=== PATIENT | female | born 1950 | race African-American/Black ===

== ENCOUNTER 2019-09-17 15:36 | Emergency (ER) | payer MEDICARE, OTHER ==
[~2019-09-17] VITALS: Ht 162.6 cm; Wt 80.3 kg
--- NOTE | 2019-09-17 15:58 | NUR ---
pt bib ra for intermitten chest pain 03/04. [id number]. currently, patient does not endorse and chest pain. no sob. not in any distress. will continue to monitor
[2019-09-17] MEDS ORDERED: ALPRAZOLAM 0.5 MG TABLET PO ONE (16:00)
[2019-09-17] MEDS ORDERED: IBUPROFEN 600 MG TABLET PO ONE ×2 (16:00→16:08)
[2019-09-17] MEDS ORDERED: ALPRAZOLAM 0.5 MG TABLET ONE (16:08)
[2019-09-17 17:00] VITALS: BP 144/86
--- NOTE | 2019-09-17 17:00 | NUR ---
Patient discharged to home in stable condition. Written and verbal after care instructions given. Patient verbalizes understanding of instruction.
== END 2019-09-17 17:01 | disposition home or self-care (01) ==
LOC: ER 15:44
DX: R07.89 Other chest pain (principal); F41.9 Anxiety disorder, unspecified; I11.0 Hypertensive heart disease with heart failure; I50.9 Heart failure, unspecified
CPT/HCPCS: 36415; 84484-TC

== ENCOUNTER 2023-04-01 10:25 | Inpatient (IN) | payer MEDICARE, OTHER ==
[~2023-04-01] VITALS: Ht 162.6 cm; Wt 68.0 kg
[2023-04-01 11:20] LABS: CALCIUM, SERUM 9.4 mg/dL (8.5-10.1); CARBON DIOXIDE 27 mmol/L (21-32); CHLORIDE 104 mmol/L (98-107); CREATININE 0.8 mg/dL (0.6-1.3); GLUCOSE 163 mg/dL (74-106); POTASSIUM 3.4 mmol/L (3.5-5.1); SODIUM SERUM 141 mmol/L (136-145); UREA NITROGEN, BLOOD 16 mg/dL (7-18)
[2023-04-01 11:32] LABS: ALANINE AMINOTRANSFERASE 30 U/L (12-78); ALBUMIN 3.9 g/dL (3.4-5.0); ALKALINE PHOSPHATASE 107 U/L (46-116); ASPARTATE AMINOTRANSFERASE 23 U/L (15-37); BILIRUBIN,DIRECT 0.1 mg/dL (0.0-0.2); BILIRUBIN,TOTAL 0.6 mg/dL (0.2-1.0); TOTAL PROTEIN, SERUM 7.9 g/dL (6.4-8.2)
[2023-04-01 11:43] LABS: BASOPHILS % (AUTO) 0.8 % (0.0-2.0); EOSINOPHILS % (AUTO) 0.4 % (0.0-6.0); HEMATOCRIT 37 % (33-45); LYMPHOCYTES # (AUTO) 1.8 K/uL (0.8-4.8); LYMPHOCYTES % (AUTO) 34.5 % (20.0-44.0); MEAN CORPUSCULAR HGB CONC 32 g/dl (31.0-36.0); MEAN CORPUSCULAR VOLUME 82 fL (82-100); MONOCYTES # (AUTO) 0.5 K/uL (0.1-1.30); MONOCYTES % (AUTO) 8.8 % (2.0-12.0); NEUTROPHILS # (AUTO) 2.9 K/uL (1.8-8.9); NEUTROPHILS % (AUTO) 55.5 % (43.0-81.0); PLATELET COUNT (AUTO) 194 K/uL (150-450); RED BLOOD CELL COUNT(AUTO) 4.58 MIL/uL (4.0-5.2); WHITE BLOOD COUNT (AUTO) 5.3 K/uL (4.3-11.0)
[2023-04-01] MEDS ORDERED: ONDANSETRON HCL/PF 4 MG/2 ML VIAL IVP PRN (13:30)
[2023-04-01] MEDS ORDERED: MAG HYDROX/AL HYDROX/SIMETH 30 ML UDC PO PRN (13:30)
[2023-04-01] MEDS ORDERED: MAGNESIUM HYDROXIDE 30 ML UDC PO PRN (13:30)
[2023-04-01] MEDS ORDERED: ACETAMINOPHEN 325 MG TABLET PO PRN (13:30)
[2023-04-01] MEDS ORDERED: MORPHINE SULFATE INJ 2 MG/ML DISP.SYRIN IV PRN (13:30)
[2023-04-01 16:00] VITALS: BP 111/61
[2023-04-01 20:00] VITALS: BP 118/59
[2023-04-02] VITALS: BP 114/66
[2023-04-02 04:00] VITALS: BP 121/64
[2023-04-02 07:24] LABS: BASOPHILS % (AUTO) 0.5 % (0.0-2.0); EOSINOPHILS % (AUTO) 0.8 % (0.0-6.0); HEMATOCRIT 37 % (33-45); HEMOGLOBIN 11.9 g/dL (11.5-14.8); LYMPHOCYTES # (AUTO) 1.8 K/uL (0.8-4.8); LYMPHOCYTES % (AUTO) 36.4 % (20.0-44.0); MEAN CORPUSCULAR HGB CONC 32 g/dl (31.0-36.0); MEAN CORPUSCULAR VOLUME 83 fL (82-100); MONOCYTES # (AUTO) 0.4 K/uL (0.1-1.30); MONOCYTES % (AUTO) 8.8 % (2.0-12.0); NEUTROPHILS # (AUTO) 2.7 K/uL (1.8-8.9); NEUTROPHILS % (AUTO) 53.5 % (43.0-81.0); PLATELET COUNT (AUTO) 187 K/uL (150-450); RED BLOOD CELL COUNT(AUTO) 4.48 MIL/uL (4.0-5.2)
[2023-04-02 07:44] LABS: CALCIUM, SERUM 9.2 mg/dL (8.5-10.1); CARBON DIOXIDE 28 mmol/L (21-32); CHLORIDE 103 mmol/L (98-107); CREATININE 0.8 mg/dL (0.6-1.3); GLUCOSE 110 mg/dL (74-106); MAGNESIUM 2.1 mg/dL (1.8-2.4); POTASSIUM 3.3 mmol/L (3.5-5.1); SODIUM SERUM 142 mmol/L (136-145); UREA NITROGEN, BLOOD 13 mg/dL (7-18)
[2023-04-02 08:00] VITALS: BP 120/66
[2023-04-02] MEDS: ASPIRIN 81 MG TAB.CHEW PO SCH (09:54)
[2023-04-02] MEDS: ATORVASTATIN 10 MG TABLET PO SCH (09:54)
[2023-04-02] MEDS: ENOXAPARIN SODIUM 40 MG/0.4 ML DISP.SYRIN SQ SCH (09:55)
[2023-04-02] MEDS: METOPROLOL TARTRATE 25 MG TABLET PO SCH ×2 (09:55→20:55)
[2023-04-02] MEDS ORDERED: POTASSIUM CHLORIDE 20 MEQ TAB.PRT.SR PO SCH (10:00)
[2023-04-02 11:35] LABS: THYROID STIMULATING HORMONE 1.192 uIU/mL (0.358-3.74)
[2023-04-02 12:00] VITALS: BP 131/66
[2023-04-02] MEDS ORDERED: NIFE60TA73 PO (14:01)
[2023-04-02] MEDS ORDERED: CARV25TA2 PO (14:01)
[2023-04-02] MEDS ORDERED: ANAS1TAB50 PO (14:01)
[2023-04-02] MEDS ORDERED: LOSA100T31 PO (14:01)
[2023-04-02] MEDS ORDERED: HYDR-4077 PO (14:01)
[2023-04-02] MEDS ORDERED: ATOR10TA PO (14:01)
[2023-04-02] MEDS ORDERED: ISOS30TA86 PO (14:01)
[2023-04-02] MEDS ORDERED: LATA2.5D15 EACHEYE (14:01)
[2023-04-02] MEDS ORDERED: FURO40TA5 PO (14:01)
[2023-04-02] MEDS ORDERED: BRIM5DRO5 EACHEYE (14:01)
[2023-04-02] MEDS ORDERED: IOHEXOL-350 100 ML VIAL IV ONE (15:52)
[2023-04-02] MEDS ORDERED: IV NS 0.9% 250 ML IV ONE (15:52)
[2023-04-02 16:00] VITALS: BP 134/67
[2023-04-02] MEDS ORDERED: METOPROLOL TARTRATE INJ 5 MG/5 ML AMPUL ONE ×2 (16:00→16:17)
[2023-04-02] MEDS: METOPROLOL TARTRATE INJ 5 MG/5 ML AMPUL IVP PRN ×2 (16:00→16:05)
[2023-04-02] MEDS ORDERED: NITROGLYCERIN 0.4 MG/TAB BOTTLE ONE (16:00)
[2023-04-02] MEDS ORDERED: NITROGLYCERIN 0.4 MG/TAB BOTTLE SL ONE (16:00)
[2023-04-02 20:00] VITALS: BP 115/53
[2023-04-03] VITALS: BP 125/59
[2023-04-03 04:00] VITALS: BP 131/65
[2023-04-03 07:16] LABS: BASOPHILS % (AUTO) 0.5 % (0.0-2.0); EOSINOPHILS % (AUTO) 0.8 % (0.0-6.0); HEMATOCRIT 34 % (33-45); HEMOGLOBIN 11.1 g/dL (11.5-14.8); LYMPHOCYTES # (AUTO) 1.6 K/uL (0.8-4.8); LYMPHOCYTES % (AUTO) 31.7 % (20.0-44.0); MEAN CORPUSCULAR HGB CONC 32 g/dl (31.0-36.0); MEAN CORPUSCULAR VOLUME 81 fL (82-100); MONOCYTES # (AUTO) 0.5 K/uL (0.1-1.30); MONOCYTES % (AUTO) 10.2 % (2.0-12.0); NEUTROPHILS # (AUTO) 2.9 K/uL (1.8-8.9); NEUTROPHILS % (AUTO) 56.8 % (43.0-81.0); PLATELET COUNT (AUTO) 173 K/uL (150-450); WHITE BLOOD COUNT (AUTO) 5.2 K/uL (4.3-11.0)
[2023-04-03 07:41] LABS: ALANINE AMINOTRANSFERASE 32 U/L (12-78); ALBUMIN 3.3 g/dL (3.4-5.0); ALKALINE PHOSPHATASE 97 U/L (46-116); ASPARTATE AMINOTRANSFERASE 18 U/L (15-37); BILIRUBIN,TOTAL 0.4 mg/dL (0.2-1.0); CALCIUM, SERUM 9.1 mg/dL (8.5-10.1); CARBON DIOXIDE 28 mmol/L (21-32); CHLORIDE 106 mmol/L (98-107); CREATININE 0.8 mg/dL (0.6-1.3); GLUCOSE 104 mg/dL (74-106); MAGNESIUM 2.2 mg/dL (1.8-2.4); PHOSPHORUS 4.3 mg/dL (2.5-4.9); POTASSIUM 3.8 mmol/L (3.5-5.1); SODIUM SERUM 140 mmol/L (136-145); TOTAL PROTEIN, SERUM 6.9 g/dL (6.4-8.2); UREA NITROGEN, BLOOD 12 mg/dL (7-18)
[2023-04-03 08:00] VITALS: BP 142/58
[2023-04-03] MEDS: ASPIRIN 81 MG TAB.CHEW PO SCH (08:09)
[2023-04-03] MEDS: ATORVASTATIN 10 MG TABLET PO SCH (08:10)
[2023-04-03] MEDS: ENOXAPARIN SODIUM 40 MG/0.4 ML DISP.SYRIN SQ SCH (08:11)
[2023-04-03] MEDS: METOPROLOL TARTRATE 25 MG TABLET PO SCH (08:39)
[2023-04-03 12:00] VITALS: BP 142/58
== END 2023-04-03 12:50 | disposition home or self-care (01) | DRG 311 ==
LOC: ER 10:28 → TELE1 12:53
PROVIDERS: ADMIT Internal Medicine; ATTEND Internal Medicine
PROC: 05HC33Z Insertion of Infusion Device into Left Basilic Vein, Percutaneous Approach (ICD-10-PCS; principal; 2023-04-02)
DX: I20.9 Angina pectoris, unspecified (principal); I11.0 Hypertensive heart disease with heart failure; I50.9 Heart failure, unspecified; E11.9 Type 2 diabetes mellitus without complications; E87.6 Hypokalemia; Z20.822 Contact with and (suspected) exposure to COVID-19
CPT/HCPCS: 36415; 71045-TC; 75574; 80048-TC; 80053-TC; 80061-TC; 80076-TC; 83735-TC; 84100-TC; 84439-TC; 84443-TC; 84484-TC; 85025-TC; 87081-TC; 93307-TC; C9803; G0378; J1650; J3490; J7050; Q9967

== ENCOUNTER 2023-06-23 11:41 | Emergency (ER) | payer OTHER ==
[~2023-06-23] VITALS: Ht 162.6 cm; Wt 68.0 kg
[~2023-06-23 11:41] MED LIST: ANAS1TAB50 PO; ATOR10TA PO; BRIM5DRO5 EACHEYE; CARV25TA2 PO; FURO40TA5 PO; HYDR-4077 PO; ISOS30TA86 PO; LATA2.5D15 EACHEYE; LOSA100T31 PO; NIFE60TA73 PO
--- NOTE | 2023-06-23 11:45 | NUR ---
BIB C/O HAVING LOW BLOOD PRESSURE AND FEELING DIZZY SINCE THIS MORNING.
--- NOTE | 2023-06-23 12:10 | NUR ---
AT BEDSIDE FOR EVAL
--- NOTE | 2023-06-23 12:25 | NUR ---
[employer] AT BEDSIDE
[2023-06-23 12:45] LABS: BASOPHILS % (AUTO) 0.4 % (0.0-2.0); EOSINOPHILS % (AUTO) 0.6 % (0.0-6.0); HEMATOCRIT 37 % (33-45); HEMOGLOBIN 11.9 g/dL (11.5-14.8); LYMPHOCYTES % (AUTO) 30.3 % (20.0-44.0); MEAN CORPUSCULAR HGB CONC 32 g/dl (31.0-36.0); MEAN CORPUSCULAR VOLUME 82 fL (82-100); MONOCYTES # (AUTO) 0.6 K/uL (0.1-1.30); MONOCYTES % (AUTO) 8.7 % (2.0-12.0); NEUTROPHILS # (AUTO) 3.9 K/uL (1.8-8.9); PLATELET COUNT (AUTO) 150 K/uL (150-450); RED BLOOD CELL COUNT(AUTO) 4.51 MIL/uL (4.0-5.2); WHITE BLOOD COUNT (AUTO) 6.5 K/uL (4.3-11.0)
--- NOTE | 2023-06-23 12:50 | NUR ---
PATIENT TAKEN TO CT VIA [facility]
[2023-06-23 13:02] LABS: ALANINE AMINOTRANSFERASE 21 U/L (12-78); ALBUMIN 3.6 g/dL (3.4-5.0); ALKALINE PHOSPHATASE 96 U/L (46-116); ASPARTATE AMINOTRANSFERASE 13 U/L (15-37); BILIRUBIN,DIRECT 0.1 mg/dL (0.0-0.2); BILIRUBIN,TOTAL 0.5 mg/dL (0.2-1.0); CALCIUM, SERUM 9.6 mg/dL (8.5-10.1); CARBON DIOXIDE 25 mmol/L (21-32); CHLORIDE 105 mmol/L (98-107); CREATININE 0.9 mg/dL (0.6-1.3); GLUCOSE 111 mg/dL (74-106); POTASSIUM 3.1 mmol/L (3.5-5.1); SODIUM SERUM 141 mmol/L (136-145); UREA NITROGEN, BLOOD 15 mg/dL (7-18)
[2023-06-23] MEDS ORDERED: MECLIZINE HCL 12.5 MG TABLET ONE (13:07)
[2023-06-23] MEDS: MECLIZINE HCL 12.5 MG TABLET PO ONE (13:10)
[2023-06-23] MEDS ORDERED: MECL-159 PO (13:57)
--- NOTE | 2023-06-23 14:16 | NUR ---
Patient discharged to home in stable condition. Written and verbal after care instructions given. Patient verbalizes understanding of instruction.
[2023-06-23 14:17] VITALS: BP 106/67; TEMP 98.8; O2SAT 98
== END 2023-06-23 14:16 | disposition home or self-care (01) ==
LOC: ER 11:49
DX: R42 Dizziness and giddiness (principal); I11.0 Hypertensive heart disease with heart failure; I50.9 Heart failure, unspecified; Z79.899 Other long term (current) drug therapy
CPT/HCPCS: 99285; 70450; 71045; 93005 ×2; 85025; 80048; 80076; 36415; 84484; 83880; 82962; J8597

== ENCOUNTER 2024-05-14 16:04 | Inpatient (IN) | payer MEDICARE, OTHER ==
[~2024-05-14] VITALS: Ht 165.1 cm; Wt 80.7 kg
[~2024-05-14 16:04] MED LIST changes: +MECL-159 PO
[2024-05-14] MEDS ORDERED: ONDANSETRON HCL/PF 4 MG/2 ML VIAL ONE (16:38)
[2024-05-14 16:39] LABS: BASOPHILS # (AUTO) 0.1 K/uL (0.0-0.2); BASOPHILS % (AUTO) 0.6 % (0.0-2.0); EOSINOPHILS # (AUTO) 0.1 K/uL (0.0-0.7); EOSINOPHILS % (AUTO) 0.8 % (0.0-6.0); HEMATOCRIT 36 % (33-45); HEMOGLOBIN 12.2 g/dL (11.5-14.8); LYMPHOCYTES # (AUTO) 2.4 K/uL (0.8-4.8); MEAN CORPUSCULAR HEMOGLOBIN 28 PG (26.0-33.0); MEAN CORPUSCULAR HGB CONC 34 g/dl (31.0-36.0); MEAN CORPUSCULAR VOLUME 82 fL (82-100); MONOCYTES # (AUTO) 0.7 K/uL (0.1-1.30); MONOCYTES % (AUTO) 8.6 % (2.0-12.0); NEUTROPHILS # (AUTO) 5.1 K/uL (1.8-8.9); PLATELET COUNT (AUTO) 175 K/uL (150-450); RED BLOOD CELL COUNT(AUTO) 4.44 MIL/uL (4.0-5.2); RED CELL DISTRIBUTION WIDTH 17.2 % (11.5-15.0); WHITE BLOOD COUNT (AUTO) 8.4 K/uL (4.3-11.0)
[2024-05-14] MEDS ORDERED: MORPHINE SULFATE INJ 4 MG/ML DISP.SYRIN ONE (16:39)
[2024-05-14] MEDS: ONDANSETRON HCL/PF 4 MG/2 ML VIAL IVP ONE (16:43)
[2024-05-14] MEDS: ASPIRIN 81 MG TAB.CHEW PO ONE (16:43)
[2024-05-14] MEDS: MORPHINE SULFATE INJ 2 MG/ML DISP.SYRIN IV ONE (16:43)
[2024-05-14] MEDS ORDERED: ASPIRIN 81 MG TAB.CHEW ONE (16:43)
[2024-05-14 17:00] LABS: CALCIUM, SERUM 10.1 mg/dL (8.5-10.1); CARBON DIOXIDE 29 mmol/L (21-32); CHLORIDE 101 mmol/L (98-107); CREATININE 0.8 mg/dL (0.6-1.3); GLUCOSE 109 mg/dL (74-106); POTASSIUM 3.4 mmol/L (3.5-5.1); SODIUM SERUM 143 mmol/L (136-145); UREA NITROGEN, BLOOD 14 mg/dL (7-18)
[2024-05-14] MEDS ORDERED: CALC-17 PO (17:39)
[2024-05-14] MEDS ORDERED: MECLIZINE HCL 25 MG TABLET PO PRN (22:30)
[2024-05-14] MEDS ORDERED: MAGNESIUM HYDROXIDE 30 ML UDC PO PRN (22:30)
[2024-05-14] MEDS ORDERED: Z GUARD REMEDY 4 OZ OINT TP PRN (22:30)
[2024-05-14] MEDS ORDERED: ONDANSETRON HCL/PF 4 MG/2 ML VIAL IVP PRN (22:30)
[2024-05-14] MEDS ORDERED: MAG HYDROX/AL HYDROX/SIMETH 30 ML UDC PO PRN (22:30)
[2024-05-14] MEDS ORDERED: ZOLPIDEM TARTRATE 5 MG TABLET PO PRN (22:30)
[2024-05-15] VITALS: BP 123/71; TEMP 97.9; O2SAT 99
[2024-05-15] MEDS ORDERED: DEXTROSE 50%-WATER 50 ML DISP.SYRIN IV PRN
[2024-05-15] MEDS ORDERED: *INSULIN REGULAR(HUMULIN R)HUM 100 UNIT/ML VIAL SQ PRN
[2024-05-15 04:00] VITALS: BP 121/61; TEMP 97.9; O2SAT 99
[2024-05-15] MEDS: ACETAMINOPHEN 325 MG TABLET PO PRN (06:14)
[2024-05-15 06:56] LABS: BASOPHILS % (AUTO) 0.3 % (0.0-2.0); EOSINOPHILS # (AUTO) 0.1 K/uL (0.0-0.7); EOSINOPHILS % (AUTO) 0.9 % (0.0-6.0); HEMATOCRIT 38 % (33-45); HEMOGLOBIN 12.6 g/dL (11.5-14.8); LYMPHOCYTES # (AUTO) 2.4 K/uL (0.8-4.8); LYMPHOCYTES % (AUTO) 36.7 % (20.0-44.0); MEAN CORPUSCULAR HEMOGLOBIN 27 PG (26.0-33.0); MEAN CORPUSCULAR HGB CONC 33 g/dl (31.0-36.0); MEAN CORPUSCULAR VOLUME 83 fL (82-100); MONOCYTES # (AUTO) 0.6 K/uL (0.1-1.30); MONOCYTES % (AUTO) 9.6 % (2.0-12.0); NEUTROPHILS # (AUTO) 3.4 K/uL (1.8-8.9); NEUTROPHILS % (AUTO) 52.5 % (43.0-81.0); PLATELET COUNT (AUTO) 157 K/uL (150-450); RED BLOOD CELL COUNT(AUTO) 4.62 MIL/uL (4.0-5.2); WHITE BLOOD COUNT (AUTO) 6.5 K/uL (4.3-11.0)
[2024-05-15 07:19] LABS: CREATININE 0.7 mg/dL (0.6-1.3); MAGNESIUM 2.3 mg/dL (1.8-2.4); PHOSPHORUS 4.4 mg/dL (2.5-4.9); POTASSIUM 3.8 mmol/L (3.5-5.1)
[2024-05-15 07:39] LABS: THYROID STIMULATING HORMONE 2.57 uIU/mL (0.358-3.74)
[2024-05-15 08:00] VITALS: BP 139/66; TEMP 97.7; O2SAT 96
[2024-05-15] MEDS: BLOOD SUGAR DIAGNOSTIC 1 EACH STRIP VI SCH (08:38)
[2024-05-15] MEDS: PANTOPRAZOLE 40 MG TABLET.DR PO SCH (08:40)
[2024-05-15] MEDS: INSULIN REGULAR, HUMAN 100 UNIT/ML 3 ML VIAL SQ PRN (08:42)
[2024-05-15] MEDS: LOSARTAN POTASSIUM 50 MG TABLET PO SCH (09:07)
[2024-05-15] MEDS: ANASTROZOLE 1 MG TABLET PO SCH (09:07)
[2024-05-15] MEDS: BRIMONIDINE TARTRATE OPHT SOLN 5 ML BOTTLE EACHEYE SCH (09:07)
[2024-05-15] MEDS: ENOXAPARIN SODIUM 40 MG/0.4 ML DISP.SYRIN SQ SCH (09:08)
[2024-05-15] MEDS: CARVEDILOL 12.5 MG TABLET PO SCH (09:11)
[2024-05-15] MEDS: hydrALAZINE HCL 50 MG TABLET PO SCH (09:11)
[2024-05-15] MEDS: NIFEDIPINE XL 60 MG TAB.ER.24 PO SCH (09:11)
[2024-05-15] MEDS: FUROSEMIDE 40 MG TABLET PO SCH (09:11)
[2024-05-15] MEDS: CALCIUM CARB 250MG /VITAMIN D 1 UDTAB PO SCH (09:12)
[2024-05-15] MEDS: ISOSORBIDE MONONITRATE (30MG) 30 MG TAB.SR.24H PO SCH (09:12)
[2024-05-15] MEDS: ATORVASTATIN 10 MG TABLET PO SCH (09:12)
[2024-05-15] MEDS: ASPIRIN 81 MG TAB.CHEW PO SCH (09:13)
[2024-05-15 12:09] VITALS: BP 115/65; TEMP 98.8; O2SAT 95
[2024-05-15 16:00] VITALS: BP 116/63; TEMP 98.1; O2SAT 95
[2024-05-15 20:00] VITALS: BP 104/63; TEMP 98.1; O2SAT 100
[2024-05-15] MEDS: LATANOPROST EYE DROP 0.005% 2.5 ML BOTTLE EACHEYE SCH (21:40)
[2024-05-16] VITALS: BP 121/85; TEMP 97.7; O2SAT 100
[2024-05-16 04:00] VITALS: BP 123/64; TEMP 97.9; O2SAT 100
[2024-05-16 08:00] VITALS: BP 130/72; TEMP 97.5; O2SAT 100
[2024-05-16] MEDS ORDERED: SPIR50TA5 PO (10:54)
[2024-05-16] MEDS ORDERED: EMPA10TA PO (10:54)
[2024-05-16] MEDS ORDERED: SACU1TAB PO (10:54)
[2024-05-16 12:00] VITALS: BP 126/72; TEMP 97.5; O2SAT 100
[2024-05-16 12:02] VITALS: BP 126/72
== END 2024-05-16 13:02 | disposition home or self-care (01) | DRG 302 ==
LOC: ER 16:07 → TELE1 20:30
PROVIDERS: ADMIT Student in an Organized Health Care Education/Training Program; ATTEND Nurse Practitioner Acute Care
DX: I25.10 Atherosclerotic heart disease of native coronary artery without angina pectoris (principal); I50.23 Acute on chronic systolic (congestive) heart failure; I11.0 Hypertensive heart disease with heart failure; E78.5 Hyperlipidemia, unspecified; Z85.3 Personal history of malignant neoplasm of breast; E11.9 Type 2 diabetes mellitus without complications; Z79.82 Long term (current) use of aspirin
CPT/HCPCS: 36415; 71045-TC; 80048-TC; 80061-TC; 82962-TC; 83735-TC; 83880; 84100-TC; 84443-TC; 84484-TC; 85025-TC; 85378-TC; 93307-TC; G0378; J1650; J1815; J2270; J2405

== ENCOUNTER 2025-01-08 11:18 | Emergency (ER) | payer MEDICARE ==
[~2025-01-08] VITALS: Ht 162.6 cm; Wt 83.9 kg
[~2025-01-08 11:18] MED LIST changes: +CALC-17 PO; +EMPA10TA PO; -FURO40TA5 PO; -LOSA100T31 PO; -NIFE60TA73 PO; +SACU1TAB PO; +SPIR50TA5 PO
[2025-01-08 11:23] VITALS: TEMP 98.6
[2025-01-08 12:15] LABS: CALCIUM, SERUM 9.2 mg/dL (8.5-10.1); CREATININE 0.8 mg/dL (0.6-1.3); POTASSIUM 3.7 mmol/L (3.5-5.1)
[2025-01-08 12:18] LABS: BASOPHILS % (AUTO) 0.3 % (0.0-2.0); EOSINOPHILS % (AUTO) 0.5 % (0.0-6.0); HEMATOCRIT 36 % (33-45); HEMOGLOBIN 11.4 g/dL (11.5-14.8); LYMPHOCYTES # (AUTO) 1.2 K/uL (0.8-4.8); LYMPHOCYTES % (AUTO) 18.3 % (20.0-44.0); MEAN CORPUSCULAR HEMOGLOBIN 28 PG (26.0-33.0); MEAN CORPUSCULAR HGB CONC 32 g/dl (31.0-36.0); MEAN CORPUSCULAR VOLUME 90 fL (82-100); MONOCYTES # (AUTO) 0.5 K/uL (0.1-1.30); MONOCYTES % (AUTO) 7.2 % (2.0-12.0); NEUTROPHILS # (AUTO) 4.8 K/uL (1.8-8.9); NEUTROPHILS % (AUTO) 73.7 % (43.0-81.0); PLATELET COUNT (AUTO) 138 K/uL (150-450); RED BLOOD CELL COUNT(AUTO) 4.02 MIL/uL (4.0-5.2); RED CELL DISTRIBUTION WIDTH 15.7 % (11.5-15.0); WHITE BLOOD COUNT (AUTO) 6.5 K/uL (4.3-11.0)
[2025-01-08 12:21] LABS: ALBUMIN 3.9 g/dL (3.4-5.0); BILIRUBIN,DIRECT 0.3 mg/dL (0.0-0.2); BILIRUBIN,TOTAL 1.2 mg/dL (0.2-1.0); TOTAL PROTEIN, SERUM 7.4 g/dL (6.4-8.2)
[2025-01-08 12:49] LABS: APPEARANCE,URINE CLEAR (CLEAR); BILIRUBIN,URINE NEGATIVE (NEGATIVE); BLOOD, URINE NEGATIVE Ery/uL (NEGATIVE); COLOR,URINE YELLOW (YELLOW); KETONES,URINE TRACE mg/dL (NEGATIVE); LEUKOCYTE ESTERASE ,URINE NEGATIVE (NEGATIVE); NITRITE, URINE NEGATIVE (NEGATIVE); PROTEIN,URINE TRACE mg/dl (NEGATIVE); UGLUCOSE NEGATIVE (NEGATIVE); UROBILINOGEN,URINE 0.2 EU/dL (0.2)
[2025-01-08 12:57] LABS: ADD URINE CULTURE NO; BACTERIA,URINE Rare /HPF (None Seen); MUCUS,URINE Few /LPF (None Seen); RBC,URINE 0-2 /HPF (0-2); SQUAMOUS EPITHELIAL CELL,UR Few /HPF (None Seen); WBC,URINE 0-2 /HPF (0-3)
[2025-01-08] MEDS ORDERED: ONDANSETRON HCL/PF 4 MG/2 ML VIAL ONE (13:37)
[2025-01-08] MEDS ORDERED: MORPHINE SULFATE INJ 2 MG/ML DISP.SYRIN ONE (13:37)
[2025-01-08] MEDS: MORPHINE SULFATE INJ 2 MG/ML DISP.SYRIN IV ONE (13:45)
[2025-01-08] MEDS: ONDANSETRON HCL/PF 4 MG/2 ML VIAL IV ONE (13:46)
[2025-01-08] MEDS ORDERED: ONDA4TAB5 PO (14:38)
[2025-01-08] MEDS ORDERED: FURO-145 PO (14:38)
[2025-01-08 14:59] VITALS: BP 132/75; O2SAT 96
== END 2025-01-08 14:59 | disposition home or self-care (01) ==
LOC: ER 11:21
DX: R10.84 Generalized abdominal pain (principal); M79.604 Pain in right leg; M79.605 Pain in left leg; M79.89 Other specified soft tissue disorders; R06.02 Shortness of breath; R09.89 Other specified symptoms and signs involving the circulatory and respiratory systems; E11.9 Type 2 diabetes mellitus without complications; E78.5 Hyperlipidemia, unspecified; I11.0 Hypertensive heart disease with heart failure; I50.9 Heart failure, unspecified; Z79.84 Long term (current) use of oral hypoglycemic drugs; Z79.899 Other long term (current) drug therapy; Z86.018 Personal history of other benign neoplasm; Z98.890 Other specified postprocedural states
CPT/HCPCS: 99285; 74176; 96374; 71045; 96375; 93005; 85025; 80048; 83690; 80076; 81001; 36415; 84484; 83880; J2405; J2270

== ENCOUNTER 2025-02-18 18:08 | Inpatient (IN) | payer MEDICARE ==
[~2025-02-18] VITALS: Ht 157.5 cm; Wt 78.5 kg
[~2025-02-18 18:08] MED LIST changes: +FURO-145 PO; +ONDA4TAB5 PO
[2025-02-18 19:19] LABS: BASOPHILS % (AUTO) 0.4 % (0.0-2.0); EOSINOPHILS # (AUTO) 0.1 K/uL (0.0-0.7); HEMATOCRIT 39 % (33-45); HEMOGLOBIN 12.5 g/dL (11.5-14.8); LYMPHOCYTES # (AUTO) 1.8 K/uL (0.8-4.8); LYMPHOCYTES % (AUTO) 28.5 % (20.0-44.0); MEAN CORPUSCULAR HEMOGLOBIN 27 PG (26.0-33.0); MEAN CORPUSCULAR HGB CONC 32 g/dl (31.0-36.0); MEAN CORPUSCULAR VOLUME 84 fL (82-100); MONOCYTES # (AUTO) 0.5 K/uL (0.1-1.30); MONOCYTES % (AUTO) 7.3 % (2.0-12.0); NEUTROPHILS % (AUTO) 62.8 % (43.0-81.0); PLATELET COUNT (AUTO) 155 K/uL (150-450); RED BLOOD CELL COUNT(AUTO) 4.57 MIL/uL (4.0-5.2); RED CELL DISTRIBUTION WIDTH 15.1 % (11.5-15.0); WHITE BLOOD COUNT (AUTO) 6.3 K/uL (4.3-11.0)
[2025-02-18 19:44] LABS: CALCIUM, SERUM 9.2 mg/dL (8.5-10.1); CARBON DIOXIDE 29 mmol/L (21-32); CHLORIDE 104 mmol/L (98-107); CREATININE 0.9 mg/dL (0.6-1.3); GLUCOSE 117 mg/dL (74-106); POTASSIUM 3.3 mmol/L (3.5-5.1); SODIUM SERUM 141 mmol/L (136-145); UREA NITROGEN, BLOOD 14 mg/dL (7-18)
[2025-02-18 19:56] LABS: NT-PRO BNP 1066 pg/mL (0-125)
[2025-02-18] MEDS: ASPIRIN EC 325 MG TABLET.DR PO ONE (20:48)
[2025-02-18] MEDS ORDERED: hydrALAZINE HCL IV 20 MG VIAL IV PRN (23:00)
[2025-02-18] MEDS ORDERED: MECLIZINE HCL 25 MG TABLET PO PRN (23:00)
[2025-02-18] MEDS ORDERED: ONDANSETRON HCL/PF 4 MG/2 ML VIAL IVP PRN (23:00)
[2025-02-18] MEDS ORDERED: DEXTROSE 50%-WATER 50 ML DISP.SYRIN IV PRN (23:00)
[2025-02-18] MEDS ORDERED: MORPHINE SULFATE INJ 2 MG/ML DISP.SYRIN IV PRN (23:00)
[2025-02-18] MEDS ORDERED: ALBUTEROL FS 2.5 MG/0.5 ML VIAL.NEB NEB PRN (23:00)
[2025-02-19 00:27] VITALS: BP 154/81; TEMP 97.9; O2SAT 100
[2025-02-19 04:00] VITALS: BP 136/68; TEMP 97.9; O2SAT 97
[2025-02-19] MEDS: BLOOD SUGAR DIAGNOSTIC 1 EACH STRIP IN SCH (06:34)
[2025-02-19 07:09] LABS: BASOPHILS % (AUTO) 0.5 % (0.0-2.0); EOSINOPHILS % (AUTO) 0.7 % (0.0-6.0); HEMATOCRIT 39 % (33-45); HEMOGLOBIN 12.5 g/dL (11.5-14.8); LYMPHOCYTES # (AUTO) 1.9 K/uL (0.8-4.8); LYMPHOCYTES % (AUTO) 36.2 % (20.0-44.0); MEAN CORPUSCULAR HEMOGLOBIN 27 PG (26.0-33.0); MEAN CORPUSCULAR HGB CONC 33 g/dl (31.0-36.0); MEAN CORPUSCULAR VOLUME 84 fL (82-100); MONOCYTES # (AUTO) 0.5 K/uL (0.1-1.30); MONOCYTES % (AUTO) 9.4 % (2.0-12.0); NEUTROPHILS # (AUTO) 2.8 K/uL (1.8-8.9); NEUTROPHILS % (AUTO) 53.2 % (43.0-81.0); PLATELET COUNT (AUTO) 138 K/uL (150-450); RED BLOOD CELL COUNT(AUTO) 4.58 MIL/uL (4.0-5.2); RED CELL DISTRIBUTION WIDTH 14.6 % (11.5-15.0); WHITE BLOOD COUNT (AUTO) 5.3 K/uL (4.3-11.0)
[2025-02-19 07:10] LABS: ALBUMIN 3.3 g/dL (3.4-5.0); BILIRUBIN,TOTAL 0.5 mg/dL (0.2-1.0); CREATININE 0.9 mg/dL (0.6-1.3); MAGNESIUM 2.1 mg/dL (1.8-2.4); PHOSPHORUS 3.7 mg/dL (2.5-4.9); POTASSIUM 3.4 mmol/L (3.5-5.1); TOTAL PROTEIN, SERUM 7.1 g/dL (6.4-8.2)
[2025-02-19 07:31] LABS: CALCIUM, SERUM 9.1 mg/dL (8.5-10.1)
[2025-02-19 08:00] VITALS: BP 128/66; TEMP 98.2; O2SAT 98
[2025-02-19] MEDS: hydrALAZINE HCL 50 MG TABLET PO SCH (08:38)
[2025-02-19] MEDS: ATORVASTATIN 10 MG TABLET PO SCH (08:38)
[2025-02-19] MEDS: FUROSEMIDE 20 MG TABLET PO SCH (08:38)
[2025-02-19] MEDS: CARVEDILOL 12.5 MG TABLET PO SCH (08:39)
[2025-02-19] MEDS: SPIRONOLACTONE 25 MG TABLET PO SCH (08:39)
[2025-02-19] MEDS: ANASTROZOLE 1 MG TABLET PO SCH (08:39)
[2025-02-19] MEDS: ISOSORBIDE MONONITRATE (30MG) 30 MG TAB.SR.24H PO SCH (08:39)
[2025-02-19] MEDS: SACUBITRIL/VALSARTAN 24/26MG TABLET PO SCH (08:40)
[2025-02-19] MEDS: BRIMONIDINE TARTRATE OPHT SOLN 5 ML BOTTLE EACHEYE SCH (08:40)
[2025-02-19] MEDS: HEPARIN SODIUM, PORCINE 5000 UNITS/1 ML VIAL SQ SCH (08:41)
[2025-02-19] MEDS: METOPROLOL TARTRATE 50 MG TABLET PO ONE (10:01)
[2025-02-19] MEDS: EMPAGLIFLOZIN 10 MG TABLET PO SCH (10:01)
[2025-02-19] MEDS: POTASSIUM CHLORIDE 20 MEQ TAB.PRT.SR PO SCH (10:01)
[2025-02-19] MEDS ORDERED: IOHEXOL-350 100 ML VIAL IV ONE (10:36)
[2025-02-19] MEDS ORDERED: IV NS 0.9% 250 ML IV ONE (10:36)
[2025-02-19 12:00] VITALS: BP 134/62; TEMP 99.6; O2SAT 99
[2025-02-19] MEDS: METOPROLOL TARTRATE INJ 5 MG/5 ML AMPUL IVP PRN (13:35)
[2025-02-19] MEDS ORDERED: NITROGLYCERIN 0.4 MG/TAB BOTTLE ONE (13:39)
[2025-02-19] MEDS ORDERED: METOPROLOL TARTRATE INJ 5 MG/5 ML AMPUL ONE (13:39)
[2025-02-19] MEDS: NITROGLYCERIN 0.4 MG/TAB BOTTLE SL ONE (13:47)
[2025-02-19 16:00] VITALS: BP 134/65; TEMP 98.1; O2SAT 100
[2025-02-19] MEDS: ACETAMINOPHEN 325 MG TABLET PO PRN (17:19)
[2025-02-19 20:00] VITALS: BP 110/60; TEMP 97.8; O2SAT 95
[2025-02-19] MEDS: LATANOPROST EYE DROP 0.005% 2.5 ML BOTTLE EACHEYE SCH (21:41)
[2025-02-20] VITALS: BP 124/62; TEMP 97.5; O2SAT 95
[2025-02-20 04:00] VITALS: BP 116/58; TEMP 97.5; O2SAT 97
[2025-02-20 07:26] LABS: BASOPHILS % (AUTO) 0.5 % (0.0-2.0); EOSINOPHILS # (AUTO) 0.1 K/uL (0.0-0.7); EOSINOPHILS % (AUTO) 1.2 % (0.0-6.0); HEMATOCRIT 43 % (33-45); HEMOGLOBIN 14.2 g/dL (11.5-14.8); LYMPHOCYTES # (AUTO) 1.9 K/uL (0.8-4.8); LYMPHOCYTES % (AUTO) 36.8 % (20.0-44.0); MEAN CORPUSCULAR HEMOGLOBIN 28 PG (26.0-33.0); MEAN CORPUSCULAR HGB CONC 33 g/dl (31.0-36.0); MEAN CORPUSCULAR VOLUME 84 fL (82-100); MONOCYTES # (AUTO) 0.4 K/uL (0.1-1.30); MONOCYTES % (AUTO) 8.4 % (2.0-12.0); NEUTROPHILS # (AUTO) 2.7 K/uL (1.8-8.9); NEUTROPHILS % (AUTO) 53.1 % (43.0-81.0); PLATELET COUNT (AUTO) 164 K/uL (150-450); RED BLOOD CELL COUNT(AUTO) 5.09 MIL/uL (4.0-5.2); RED CELL DISTRIBUTION WIDTH 14.8 % (11.5-15.0)
[2025-02-20 07:30] LABS: CALCIUM, SERUM 9.5 mg/dL (8.5-10.1); CREATININE 0.8 mg/dL (0.6-1.3); POTASSIUM 4.2 mmol/L (3.5-5.1)
[2025-02-20 08:00] VITALS: BP 122/59; TEMP 98; O2SAT 96
[2025-02-20] MEDS: INSULIN REGULAR, HUMAN 100 UNIT/ML 3 ML VIAL SQ PRN (12:01)
[2025-02-20 12:22] VITALS: BP 101/61
== END 2025-02-20 14:33 | disposition home or self-care (01) | DRG 206 ==
LOC: ER 18:11 → TELE 23:18 → MED 02-20 09:38
PROVIDERS: ADMIT Internal Medicine; ATTEND Internal Medicine
DX: M94.0 Chondrocostal junction syndrome [Tietze] (principal); I50.22 Chronic systolic (congestive) heart failure; I11.0 Hypertensive heart disease with heart failure; E11.9 Type 2 diabetes mellitus without complications; E78.5 Hyperlipidemia, unspecified; E87.6 Hypokalemia; Z79.84 Long term (current) use of oral hypoglycemic drugs; Z85.3 Personal history of malignant neoplasm of breast; Z79.82 Long term (current) use of aspirin; Z90.12 Acquired absence of left breast and nipple
CPT/HCPCS: 36415; 71045-TC; 75574; 80048-TC; 80053-TC; 82962-TC; 83735-TC; 83880; 84100-TC; 84484-TC; 85025-TC; 93307-TC; G0378; J1644; J1815; J3490; J7050; Q9967